=== PATIENT | female | born 1930 | race Caucasian/White ===

== ENCOUNTER 2016-10-24 07:55 | Day surgery (SDC) | payer BC ==
--- NOTE | ~2016-10-24 | EGD ---
EGD REPORT [facility] [address] [place] [address] NAME: MARIA LUISA RODRIGUEZ : 28 STATUS : REG [facility] [place] PAT#: [id number] AGE: 86 ADM/REG DATE : 10/24/16 MR#: [id number] REPORT SERV DATE: 10/24/16 DICTATED BY: JOSE ANTONIO ARRIAGA DATE: 10/24/16 REPORT STATUS : Draft TRANSCRIBED BY: [facility] DATE: 10/24/16 Endoscopy Center Patient Name: Maria Luisa Rodriguez Date of : 1930 Attending MD: JOSE ANTONIO ARRIAGA MD Procedure Date No Time: 10/24/2016 Procedure: Upper GI endoscopy Indications: Epigastric abdominal pain, Dysphagia, Heartburn, Suspected esophageal reflux, Nausea Referring MD: RANDY HUNTER MD Medicines: as per anesthesia Complications: No immediate complications. Procedure: After obtaining informed consent, the endoscope was passed under direct vision. Throughout the procedure, the patient's blood pressure, pulse, and oxygen saturations were monitored continuously. The GIF [id number] was introduced through the mouth, and advanced to the third part of duodenum. The upper GI endoscopy was accomplished without difficulty. The patient tolerated the procedure. Findings: The examined esophagus was normal. The scope was withdrawn. Dilation was performed with a [place] dilator with no resistance at 46 Fr. Localized moderate inflammation characterized by erythema and friability was found in the gastric antrum. Biopsies were taken with a cold forceps for histology. The cardia and gastric fundus were normal on retroflexion. The examined duodenum was normal. Impression: - Normal esophagus. Dilated. - Gastritis. Biopsied. - Normal examined duodenum. Recommendation: - Await pathology results. - Follow an antireflux regimen. - Continue present medications. Procedure Code(s): --- Professional --- 36995, Esophagogastroduodenoscopy, flexible, transoral; with biopsy, single or multiple 96430, Dilation of esophagus, by unguided sound or bougie, single or multiple passes Diagnosis Code(s): --- Professional --- EGD REPORT [address] [place] [address] NAME: MARIA LUISA RODRIGUEZ : [birth year] STATUS : REG [facility] [place] PAT#: [id number] AGE: 86 ADM/REG DATE : 10/24/16 MR#: [id number] REPORT SERV DATE: 10/24/16 DICTATED BY: JOSE ANTONIO ARRIAGA. DATE: 10/24/16 REPORT STATUS : Draft TRANSCRIBED BY: [employer] DATE: 10/24/16 K29.70, Gastritis, unspecified, without bleeding R10.13, Epigastric pain R13.10, Dysphagia, unspecified R12, Heartburn R11.0, Nausea CPT copyright 2013 [employer]. All rights reserved. The codes documented in this report are preliminary and upon real estate subagent review may be revised to meet current compliance requirements. JOSE ANTONIO ARRIAGA MD 10/24/2016 10:30 AM This report has been signed electronically. Number of Addenda: 0 Note Initiated On: 10/24/2016 10:10 AM Scope Withdrawal Time 0 hours 0 minutes 0 seconds [id number] [facility] [address] [place] [address]
[~2016-10-24 07:55] MED LIST: ASABAYER PO; ATV.5 PO; CARTIA XT120 MG/24 PO; COZ50 PO; COZAAR100 MG PO; EXCEDRIN EXTRA1 EACH PO; NEXIUM20 M1 PO; NEXIUM40 PO; SPIRO25 PO; TOPXL25 PO; TOPXL50 PO
== END 2016-10-24 23:59 | disposition home or self-care (01) ==
LOC: DMU 07:55
PROVIDERS: Internal Medicine Gastroenterology
PROC: 0D750ZZ Dilation of Esophagus, Open Approach (ICD-10-PCS; principal; 2016-10-24 09:00)
PROC: 0DB68ZX Excision of Stomach, Via Natural or Artificial Opening Endoscopic, Diagnostic (ICD-10-PCS; 2016-10-24 09:00)
DX: K29.70 Gastritis, unspecified, without bleeding (principal); I10 Essential (primary) hypertension; Z88.5 Allergy status to narcotic agent
CPT/HCPCS: 88305; 88342